=== PATIENT | female | born 1945 | race Caucasian/White ===

== ENCOUNTER → 2016-07-27 | Outpatient (CLI) | payer MEDICARE, OTHER ==
[~2016-07-27] MED LIST: ASPIRIN81 M1 PO; COZAAR25 M1 PO; ESCITALOPRAM OX10 MG PO; HYDR12.5C PO; IBUPROFEN600 MG PO; IMDUR SA30 MG PO; LEXAPRO10 MG PO; LISINOPRIL AND1 TA2 PO; LISINOPRIL/HCTZ1 TA3 PO; NORVASC2.5 MG PO; PROTONIX40 MG PO; Percocet 325 MG1 TAB PO; Synthroid,Levo50 MCG PO; VISTARIL25 MG PO; VISTARIL50 MG PO; ZESTRIL10 MG PO; ZESTRIL40 MG PO; ZOLOFT25 MG PO
== END | disposition home or self-care (01) ==
LOC: LAB 16:24
DX: E55.9 Vitamin D deficiency, unspecified (principal)

== ENCOUNTER → 2016-08-09 | Outpatient (CLI) | payer MEDICARE, OTHER | END | disposition home or self-care (01) | LOC: RAD 16:40 | DX: M47.892 Other spondylosis, cervical region (principal); M48.02 Spinal stenosis, cervical region; M19.012 Primary osteoarthritis, left shoulder ==